=== PATIENT | male | born 1955 | race Caucasian/White ===

== ENCOUNTER 2024-07-20 10:58 | Emergency (ER) | payer BC ==
[2024-07-20 11:07] VITALS: BP 150/90; PULSE 80; RESP 18; TEMP 97.2; BMI 27.6
[2024-07-20 11:38] LABS: ABSOLUTE IMMATURE GRANULOCYTES 0.02 x10^3/uL (0.0-0.031); BASOPHILS # 0.01 x10^3/uL (0.01-0.08); EOSINOPHIL % 0.5 % (0.8-7.0); EOSINOPHILS # 0.03 x10^3/uL (0.04-0.54); HEMATOCRIT 38.5 % (40.1-51.0); HEMOGLOBIN 12.8 g/dL (13.7-17.5); MCHC 33.2 g/dl (32.3-36.5); MEAN CELL VOLUME 93.9 fl (79.0-92.2); MEAN PLT VOLUME 11.2 fl (9.4-12.4); MONOCYTE # 0.58 x10^3/uL (0.30-0.82); PLATELET COUNT 127 x10^3/uL (163-337); RDW 12.6 % (12.2-16.4)
[2024-07-20 11:48] LABS: ALBUMIN 4.5 g/dl (3.4-5.0); ALK PHOS 48 U/L (45-117); ANION GAP 7 mmol/L (4-13); BILIRUBIN,TOTAL 0.5 mg/dl (0.2-1); CHLORIDE 107 mmol/L (98-107); CO2 24 mmol/L (21-32); CREATININE 1.4 mg/dl (0.6-1.3); GLUCOSE,RANDOM 143 mg/dl (74-106); POTASSIUM 4.1 mmol/L (3.5-5.1); SGOT/AST 11 U/L (15-37); SGPT/ALT 15 U/L (7-52); SODIUM 138 mmol/L (136-145); TOT PROT 6.7 g/dl (6.4-8.2)
[2024-07-20] MEDS ORDERED: ACETAMINOPHEN 325 MG TABLET (FP) ONE (12:44)
[2024-07-20] MEDS: ACETAMINOPHEN 325 MG TABLET (FP) PO ONE (12:46)
[2024-07-20 15:00] LABS: HIV INTERPRETATION NEGATIVE (NEGATIVE)
[2024-07-20 15:01] LABS: HCV DIAGNOSTIC IN-HOUSE W/RFLX NON-REACTIVE (NONREACTIVE)
== END 2024-07-20 13:48 | disposition home or self-care (01) ==
LOC: FER 10:58
DX: J01.90 Acute sinusitis, unspecified (principal); R51.9 Headache, unspecified
CPT/HCPCS: 36415; 70450-TC; 80053; 85025; 86803; 87389; 99284-25